=== PATIENT | female | born 1980 | race American Indian/Alaskan Native ===

== ENCOUNTER 2018-01-12 23:29 | Outpatient (CLI) | payer OTHER ==
[2018-01-13] MEDS ORDERED: BRETHINE SUB-Q ONE (00:22)
[2018-01-13 00:52] VITALS: BP 125/81
[2018-01-13] MEDS ORDERED: LACTATED RINGERS 1,000 ML IV SCH (01:00)
[2018-01-13] MEDS ORDERED: BRETHINE SUB-Q STA (02:05)
== END 2018-01-13 03:30 | disposition home or self-care (01) ==
LOC: TRG 23:29
PROVIDERS: ATTEND Obstetrics & Gynecology
DX: O47.03 False labor before 37 completed weeks of gestation, third trimester (principal); Z3A.29 29 weeks gestation of pregnancy
CPT/HCPCS: 59025; 96360; 96372